=== PATIENT | male | born 1965 | race Caucasian/White ===

== ENCOUNTER 2018-08-25 08:12 | Day surgery (SDC) | payer OTHER ==
[2018-08-25] MEDS ORDERED: fentaNYL 100 MCG/2 ML INJ IVP ONE (08:15)
[2018-08-25] MEDS ORDERED: NS 500 ML IV ONE (08:15)
[2018-08-25] MEDS ORDERED: MIDAZOLAM 2 MG/2 ML VIAL IVP ONE (08:15)
[2018-08-25] MEDS ORDERED: BENZOCAINE UNIT DOSE SPRAY HURRICAINE MM ONE (08:15)
[2018-08-25] MEDS ORDERED: ATROPINE SULFATE 1 MG/10 ML SYR ONE (09:25)
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
[2018-08-25] MEDS ORDERED: PROPOFOL/EMULSION 500 MG/50 ML BOTTLE IV ONE (09:31)
--- NOTE | 2018-08-25 09:38 | PDHPUP ---
History & Physical Update H&P update statement: This history and physical update is based on an assessment of the patient which was completed after admission or registration (within 24 hours), but prior to the surgery/procedure. H&P update: H&P reviewed & patient examined, no change in patient's condition since H&P completed
--- NOTE | 2018-08-25 10:22 | POSTANESTH ---
Post Anesthetic Evaluation Cardiovascular Status: Normal, Stable, Similar to Pre-Op Cond Respiratory Status: Normal, Stable, Similar to Pre-op Cond. Level of Consciousness/Mental Status: Can Participate in Eval, Alert and Oriented Pain Control: Adequate, Prn Tx Ordered Nausea/Vomiting Control: Adequate, Prn Tx Ordered Complications Possibly Related to Anesthesia: None Noted
== END 2018-08-25 11:45 | disposition home or self-care (01) ==
LOC: FCATH 08:12
PROVIDERS: ATTEND Internal Medicine Cardiovascular Disease
PROC: B245ZZ4 Ultrasonography of Left Heart, Transesophageal (ICD-10-PCS; principal; 2018-08-25)
DX: I35.0 Nonrheumatic aortic (valve) stenosis (principal); I10 Essential (primary) hypertension; E78.5 Hyperlipidemia, unspecified; E10.42 Type 1 diabetes mellitus with diabetic polyneuropathy; G47.33 Obstructive sleep apnea (adult) (pediatric); F32.9 Major depressive disorder, single episode, unspecified
CPT/HCPCS: J0461; J2704

== ENCOUNTER 2018-09-15 11:47 | Day surgery (SDC) | payer OTHER ==
[2018-09-15 12:43] LABS: PLATELET COUNT 218 10^3/uL (150-400)
[2018-09-15 12:50] LABS: INR 1.05 (0.83-1.16); PROTIME(PATIENT) 13.9 SEC (12.0-15.0)
[2018-09-15] MEDS ORDERED: LIDOCAINE 1% 300 MG/30 ML SDV ONE (13:06)
[2018-09-15] MEDS ORDERED: fentaNYL 100 MCG/2 ML INJ ONE (13:06)
[2018-09-15] MEDS ORDERED: MIDAZOLAM 2 MG/2 ML VIAL ONE (13:07)
[2018-09-15] MEDS ORDERED: ADENOSINE 90 MG/30 ML VIAL IV ONE (13:08)
--- NOTE | 2018-09-15 13:29 | PDHPUP ---
History & Physical Update H&P update statement: This history and physical update is based on an assessment of the patient which was completed after admission or registration (within 24 hours), but prior to the surgery/procedure. No changes in health status H&P update: H&P reviewed & patient examined (01/17 systolic mumur, LUSB, trace edema, mallampoti 3, abd sntnd, AxOx3) H&P changes: no updates
--- NOTE | 2018-09-15 13:30 | PDPROPOC ---
Sedation Plan of Care Sedation Plan of Care: mental status noted, patient educated of risks, benefits , alternatives, patient can tolerate sedation ASA Classification: ASA 3 Planned drugs: midazolam Mallampati Score: Class 3 Mallampati Reference Image:
[2018-09-15] MEDS ORDERED: NITROGLYCERIN 0.4 MG BTL SL PRN (14:28)
[2018-09-15] MEDS ORDERED: ATROPINE SULFATE 1 MG/10 ML SYR IVP PRN (14:28)
[2018-09-15] MEDS ORDERED: ONDANSETRON 4 MG/2 ML VIAL IVP PRN (14:28)
[2018-09-15] MEDS ORDERED: OXYCODONE/APAP 5/325 TAB PO PRN (14:28)
[2018-09-15] MEDS ORDERED: HYDROCODONE/APAP 5/325 TAB PO PRN (14:28)
--- NOTE | 2018-09-15 17:43 | PDDXCAT ---
Diagnostic Cath Note - . Date: 09/15/18 Dispensing Operator: Other (Ai) Intervention: PROCEDURE PERFORMED: Diagnostic right heart catheterization with serial venous oxygen saturation measurements for congenital heart disease with ultrasound guided vascular access PREOPERATIVE DIAGNOSIS: COLEMAN, pulmonary Arterial Hypertension, TOF, pulmonic stenosis POSTOPERATIVE DIAGNOSIS: mild to moderate pulmonic stenosis,TOF, COLEMAN STAFF: Chastity Cloud MD ANESTHESIA: 5 mL of 2% lidocaine injected locally. COMPLICATIONS: None. ESTIMATED BLOOD LOSS: None. PROCEDURE DESCRIPTION: Informed consent was obtained prior to the procedure. A time-out was performed prior to the procedure, confirming the patient's name, procedure type and procedure location. The patient was prepped and draped in the usual sterile fashion, exposing the right neck. The right internal jugular vein was visualized with real-time ultrasound guidance, and the skin above the right internal jugular was anesthetized with 5 mL of 2% lidocaine. The right jugular vein was then accessed with 1 stick without arterial puncture under direct real-time ultrasound guidance. Position in the venous system was confirmed under fluoroscopy, and a 7-Sudanese "Precision" micropuncture kit was used to place a 7-Sudanese lumen introducer sheath via modified Seldinger technique. A 7-Sudanese [place] catheter was then advanced through the sheath into the right atrium, right ventricle, pulmonary artery and pulmonary artery occlusion pressure positions. Serial central venous saturations were obtained as part of a shunt run and hemodynamic measurements measurements were obtained in the usual fashion. Following these measurements, the [place] catheter was removed, followed by removal of the sheath, and hemostasis was achieved. There were no complications from the procedure. PROCEDURE FINDINGS: Sinus Rhythm: Yes Procedure Findings: Baseline Units RA [a/v (mean)] 11/9(7) mmHg RV [Sys/Blood (RVEDP)] 62/5(11) mmHg PA [Sys/Blood (Mean)] 29/14(20) mmHg PAOP [End Exp (Mean)] 11 (9) mmHg TD CO (CI) 5.1(2.73) L/min (L/min/m2) Collins CO (CI) 4.12(2.21) L/min (L/min/m2) TD PVR 1.76 COONEY Collins PVR 2.18 COONEY PA sat% 74 % SpO2 sat% 95 % Venous Oxygen Saturation SaO2: IVC SVC RA RV PA NA 66% 69% 72% 74% IMPRESSION: 53-year-old male with history of tetralogy of Fallot with repaired VSD and pacer IA AICD for VT with progressive dyspnea on exertion and mild to moderate pulmonic valve stenosis with a valve gradient of 33 mm Hg. Patient's pulmonic stenosis may be contributing to patient's dyspnea on exertion and sensation of breathlessness but does not fully explain it. It is possible that upon exercise the gradient may become more significant causing symptoms. His PAOP was not elevated. He may have a component of exercised induced pulmonary hypertension versus diastolic dysfunction leading to elevated LVEDP and pulmonary edema with exercise. Given his history of congenital heart disease and longstanding pacer/AICD, silent thromboembolic disease is also a possibility. Given patient's longstanding diabetes his dyspnea exertion may be an anginal equivalent but less likely. 1) Pulmonic stenosis, gradient 33 mm Hg 2) No evidence of pulmonary hypertension at rest 3) No evidence of left to right shunt 4) Dyspnea on Exertion PLAN: 1) Complete PFTs with post bronchodilator spirometry to rule out primary pulmonary parenchymal disease 2) Home sleep study for presumed VICKIE 3) Pending above studies may consider V/Q scan 4) Follow-up echocardiogram in [address] Choudhury 5) COLEMAN may be anginal equivalent given diabetes but lower suspicion. 6) Encouraged to continue regular exercise and lose weight Chastity Cloud MD Pulmonary, Critical Care and Sleep Medicine Patient Problems: Problems Problem Status Onset Chest pain Acute
== END 2018-09-15 15:39 | disposition home or self-care (01) ==
LOC: FCATH 11:47
PROVIDERS: ATTEND Internal Medicine Pulmonary Disease
PROC: 4A023N6 Measurement of Cardiac Sampling and Pressure, Right Heart, Percutaneous Approach (ICD-10-PCS; principal; 2018-09-15)
DX: R06.09 Other forms of dyspnea (principal); I27.21 Secondary pulmonary arterial hypertension; Q21.3 Tetralogy of Fallot; Q22.1 Congenital pulmonary valve stenosis
CPT/HCPCS: J0153; J1644; J2250; J3010